=== PATIENT | male | born 1945 | race Asian ===

== ENCOUNTER 2016-12-05 08:32 | Outpatient (CLI) | payer OTHER ==
[2016-12-05 09:03] LABS: PLATELET COUNT 271 K/uL (142-355)
[2016-12-05 09:32] LABS: PARTIAL THROMBOPLASTIN TIME 24.6 SECONDS (24.5-33.6)
[2016-12-05 09:33] LABS: POTASSIUM 3.4 mmol/L (3.6-5.2); SODIUM 139 mmol/L (136-145)
== END 2016-12-05 19:28 | disposition home or self-care (01) ==
LOC: LABW 08:32
PROVIDERS: Family Medicine
DX: I12.9 Hypertensive chronic kidney disease with stage 1 through stage 4 chronic kidney disease, or unspecified chronic kidney disease (principal); Z79.899 Other long term (current) drug therapy; N18.3 Chronic kidney disease, stage 3 (moderate); Z13.1 Encounter for screening for diabetes mellitus; Z51.81 Encounter for therapeutic drug level monitoring
CPT/HCPCS: 36415; 80053; 80061; 81000; 82306; 82550; 83036; 83735; 84439; 84443; 84484; 85027; 85610; 85730; 93005

== ENCOUNTER 2017-01-07 10:16 | Outpatient (CLI) | payer OTHER ==
[2017-01-07 10:38] LABS: PLATELET COUNT 264 K/uL (142-355)
[2017-01-07 11:55] LABS: POTASSIUM 3.5 mmol/L (3.6-5.2)
== END 2017-01-07 11:20 | disposition home or self-care (01) ==
LOC: LABW 10:16
PROVIDERS: Family Medicine
DX: E87.6 Hypokalemia (principal); E83.42 Hypomagnesemia; R94.6 Abnormal results of thyroid function studies; D64.9 Anemia, unspecified
CPT/HCPCS: 36415; 82728; 83540; 83735; 84132; 84439; 84443; 84466; 84481; 85027

== ENCOUNTER 2017-02-25 08:01 | Outpatient (CLI) | payer OTHER ==
[2017-02-25 08:27] LABS: PLATELET COUNT 272 K/uL (142-355)
[2017-02-25 08:28] LABS: POTASSIUM 3.5 mmol/L (3.6-5.2); SODIUM 135 mmol/L (136-145)
== END 2017-02-25 09:05 | disposition home or self-care (01) ==
LOC: LABW 08:01
PROVIDERS: Family Medicine
DX: E87.6 Hypokalemia (principal); D64.89 Other specified anemias; E83.42 Hypomagnesemia; M25.522 Pain in left elbow; M25.562 Pain in left knee
CPT/HCPCS: 36415; 80048; 83540; 83550; 83735; 84550; 85027

== ENCOUNTER 2018-12-09 08:51 | Outpatient (CLI) | payer OTHER ==
[2018-12-09 09:12] LABS: PLATELET COUNT 260 K/uL (142-355)
[2018-12-09 09:34] LABS: POTASSIUM 3.5 mmol/L (3.6-5.2)
== END 2018-12-09 23:59 ==
LOC: LABW 08:51
PROVIDERS: Family Medicine
DX: N42.89 Other specified disorders of prostate (principal); E11.9 Type 2 diabetes mellitus without complications; I10 Essential (primary) hypertension; E78.00 Pure hypercholesterolemia, unspecified; K21.9 Gastro-esophageal reflux disease without esophagitis; E55.9 Vitamin D deficiency, unspecified; M10.9 Gout, unspecified
CPT/HCPCS: 36415; 80053; 80061; 81000; 82306; 83036; 83735; 84154; 84439; 84443; 84550; 85027

== ENCOUNTER 2020-09-25 07:51 | Outpatient (CLI) | payer OTHER ==
[~2020-09-25] VITALS: Ht 182.9 cm; Wt 107.5 kg
== END 2020-09-25 21:44 | disposition home or self-care (01) ==
LOC: DIABINF 07:51
PROVIDERS: ATTEND Internal Medicine Endocrinology, Diabetes & Metabolism
DX: E11.65 Type 2 diabetes mellitus with hyperglycemia (principal); I10 Essential (primary) hypertension; N40.0 Benign prostatic hyperplasia without lower urinary tract symptoms; E78.49 Other hyperlipidemia; N18.9 Chronic kidney disease, unspecified; K21.9 Gastro-esophageal reflux disease without esophagitis; E11.42 Type 2 diabetes mellitus with diabetic polyneuropathy
CPT/HCPCS: 82948; 96365; 96366; 96521; J1815; J1817

== ENCOUNTER 2020-09-26 07:48 | Outpatient (CLI) | payer OTHER ==
[~2020-09-26] VITALS: Ht 182.9 cm; Wt 107.5 kg
== END 2020-09-26 22:39 | disposition home or self-care (01) ==
LOC: DIABINF 07:48
PROVIDERS: ATTEND Internal Medicine Endocrinology, Diabetes & Metabolism
DX: E11.65 Type 2 diabetes mellitus with hyperglycemia (principal); I10 Essential (primary) hypertension; N40.0 Benign prostatic hyperplasia without lower urinary tract symptoms; E78.49 Other hyperlipidemia; N18.9 Chronic kidney disease, unspecified; K21.9 Gastro-esophageal reflux disease without esophagitis; E11.42 Type 2 diabetes mellitus with diabetic polyneuropathy
CPT/HCPCS: 82948; 96365; 96366; 96521; J1815; J1817

== ENCOUNTER 2020-10-02 07:57 | Outpatient (CLI) | payer OTHER ==
[~2020-10-02] VITALS: Ht 182.9 cm; Wt 107.5 kg
== END 2020-10-02 19:47 | disposition home or self-care (01) ==
LOC: DIABINF 07:57
PROVIDERS: ATTEND Internal Medicine Endocrinology, Diabetes & Metabolism
DX: E11.65 Type 2 diabetes mellitus with hyperglycemia (principal); I10 Essential (primary) hypertension; N40.0 Benign prostatic hyperplasia without lower urinary tract symptoms; E78.49 Other hyperlipidemia; N18.9 Chronic kidney disease, unspecified; K21.9 Gastro-esophageal reflux disease without esophagitis; E11.42 Type 2 diabetes mellitus with diabetic polyneuropathy
CPT/HCPCS: 82948; 96365; 96366; 96521; J1815; J1817

== ENCOUNTER 2020-10-03 07:37 | Outpatient (CLI) | payer OTHER ==
[~2020-10-03] VITALS: Ht 182.9 cm; Wt 107.5 kg
== END 2020-10-03 19:17 | disposition home or self-care (01) ==
LOC: DIABINF 07:37
PROVIDERS: ATTEND Internal Medicine Endocrinology, Diabetes & Metabolism
DX: E11.65 Type 2 diabetes mellitus with hyperglycemia (principal); E11.42 Type 2 diabetes mellitus with diabetic polyneuropathy; I10 Essential (primary) hypertension; E78.2 Mixed hyperlipidemia; N18.30 Chronic kidney disease, stage 3 unspecified; K21.9 Gastro-esophageal reflux disease without esophagitis; N40.0 Benign prostatic hyperplasia without lower urinary tract symptoms; Z87.442 Personal history of urinary calculi; R06.09 Other forms of dyspnea; N52.8 Other male erectile dysfunction; M19.90 Unspecified osteoarthritis, unspecified site
CPT/HCPCS: 82948; 96365; 96366; 96521; J1815; J1817

== ENCOUNTER 2020-10-09 08:09 | Outpatient (CLI) | payer OTHER ==
[~2020-10-09] VITALS: Ht 182.9 cm; Wt 107.5 kg
== END 2020-10-09 11:30 | disposition home or self-care (01) ==
LOC: DIABINF 08:09
PROVIDERS: ATTEND Internal Medicine Endocrinology, Diabetes & Metabolism
DX: E11.65 Type 2 diabetes mellitus with hyperglycemia (principal); I10 Essential (primary) hypertension; N40.0 Benign prostatic hyperplasia without lower urinary tract symptoms; E78.49 Other hyperlipidemia; N18.9 Chronic kidney disease, unspecified; K21.9 Gastro-esophageal reflux disease without esophagitis; E11.42 Type 2 diabetes mellitus with diabetic polyneuropathy
CPT/HCPCS: 82948; 96365; 96366; 96521; J1815; J1817

== ENCOUNTER 2020-10-10 07:54 | Outpatient (CLI) | payer OTHER ==
[~2020-10-10] VITALS: Ht 182.9 cm; Wt 107.5 kg
== END 2020-10-10 11:30 | disposition home or self-care (01) ==
LOC: DIABINF 07:54
PROVIDERS: ATTEND Internal Medicine Endocrinology, Diabetes & Metabolism
DX: E11.65 Type 2 diabetes mellitus with hyperglycemia (principal); I10 Essential (primary) hypertension; N40.0 Benign prostatic hyperplasia without lower urinary tract symptoms; E78.49 Other hyperlipidemia; N18.9 Chronic kidney disease, unspecified; K21.9 Gastro-esophageal reflux disease without esophagitis; E11.42 Type 2 diabetes mellitus with diabetic polyneuropathy
CPT/HCPCS: 82948; 96365; 96366; 96521; J1815; J1817

== ENCOUNTER 2020-10-16 08:14 | Outpatient (CLI) | payer OTHER ==
[~2020-10-16] VITALS: Ht 182.9 cm; Wt 107.5 kg
== END 2020-10-16 11:30 | disposition home or self-care (01) ==
LOC: DIABINF 08:14
PROVIDERS: ATTEND Nurse Practitioner
DX: E11.65 Type 2 diabetes mellitus with hyperglycemia (principal); E11.40 Type 2 diabetes mellitus with diabetic neuropathy, unspecified; M51.37 Other intervertebral disc degeneration, lumbosacral region; I10 Essential (primary) hypertension; E78.2 Mixed hyperlipidemia; K21.9 Gastro-esophageal reflux disease without esophagitis; N52.9 Male erectile dysfunction, unspecified; N40.0 Benign prostatic hyperplasia without lower urinary tract symptoms
CPT/HCPCS: 82948; 96365; 96366; 96521; J1815; J1817

== ENCOUNTER 2020-10-17 07:53 | Outpatient (CLI) | payer OTHER | END 2020-10-17 11:30 | disposition home or self-care (01) | LOC: DIABINF 07:53 | PROVIDERS: ATTEND Nurse Practitioner | DX: E11.65 Type 2 diabetes mellitus with hyperglycemia (principal); E11.40 Type 2 diabetes mellitus with diabetic neuropathy, unspecified; M51.37 Other intervertebral disc degeneration, lumbosacral region; I10 Essential (primary) hypertension; E78.2 Mixed hyperlipidemia; K21.9 Gastro-esophageal reflux disease without esophagitis; N52.8 Other male erectile dysfunction; N40.0 Benign prostatic hyperplasia without lower urinary tract symptoms | CPT/HCPCS: 82948; 96365; 96366; 96521; J1817 ==

== ENCOUNTER 2020-10-24 08:14 | Outpatient (CLI) | payer OTHER ==
[~2020-10-24] VITALS: Ht 182.9 cm; Wt 107.5 kg
== END 2020-10-24 19:09 | disposition home or self-care (01) ==
LOC: DIABINF 08:14
PROVIDERS: ATTEND Nurse Practitioner
DX: E11.65 Type 2 diabetes mellitus with hyperglycemia (principal); I10 Essential (primary) hypertension; N40.0 Benign prostatic hyperplasia without lower urinary tract symptoms; E78.49 Other hyperlipidemia; N18.9 Chronic kidney disease, unspecified; K21.9 Gastro-esophageal reflux disease without esophagitis; E11.42 Type 2 diabetes mellitus with diabetic polyneuropathy
CPT/HCPCS: 82948; 96365; 96366; 96521; J1815; J1817

== ENCOUNTER 2020-10-30 08:05 | Outpatient (CLI) | payer OTHER ==
[~2020-10-30] VITALS: Ht 182.9 cm; Wt 107.5 kg
== END 2020-10-30 21:18 | disposition home or self-care (01) ==
LOC: DIABINF 08:05
PROVIDERS: ATTEND Nurse Practitioner
DX: E11.65 Type 2 diabetes mellitus with hyperglycemia (principal); I10 Essential (primary) hypertension; N40.0 Benign prostatic hyperplasia without lower urinary tract symptoms; E78.49 Other hyperlipidemia; N18.9 Chronic kidney disease, unspecified; K21.9 Gastro-esophageal reflux disease without esophagitis; E11.42 Type 2 diabetes mellitus with diabetic polyneuropathy
CPT/HCPCS: 82948; 96365; 96366; 96521; J1815; J1817

== ENCOUNTER 2020-11-06 08:02 | Outpatient (CLI) | payer OTHER ==
[~2020-11-06] VITALS: Ht 182.9 cm; Wt 107.5 kg
== END 2020-11-06 19:18 | disposition home or self-care (01) ==
LOC: DIABINF 08:02
PROVIDERS: ATTEND Nurse Practitioner
DX: E11.65 Type 2 diabetes mellitus with hyperglycemia (principal); I10 Essential (primary) hypertension; N40.0 Benign prostatic hyperplasia without lower urinary tract symptoms; E78.49 Other hyperlipidemia; N18.9 Chronic kidney disease, unspecified; K21.9 Gastro-esophageal reflux disease without esophagitis; E11.42 Type 2 diabetes mellitus with diabetic polyneuropathy
CPT/HCPCS: 82948; 96365; 96366; 96521; J1815; J1817

== ENCOUNTER 2020-11-13 07:50 | Outpatient (CLI) | payer OTHER ==
[~2020-11-13] VITALS: Ht 182.9 cm; Wt 107.5 kg
== END 2020-11-13 20:51 | disposition home or self-care (01) ==
LOC: DIABINF 07:50
PROVIDERS: ATTEND Nurse Practitioner
DX: E11.65 Type 2 diabetes mellitus with hyperglycemia (principal); E11.42 Type 2 diabetes mellitus with diabetic polyneuropathy; I10 Essential (primary) hypertension; E78.2 Mixed hyperlipidemia; N18.30 Chronic kidney disease, stage 3 unspecified; K21.9 Gastro-esophageal reflux disease without esophagitis; N40.0 Benign prostatic hyperplasia without lower urinary tract symptoms; Z87.898 Personal history of other specified conditions; R06.09 Other forms of dyspnea; N52.8 Other male erectile dysfunction; M19.90 Unspecified osteoarthritis, unspecified site
CPT/HCPCS: 82948; 96365; 96366; 96521; J1815; J1817

== ENCOUNTER 2020-11-20 07:50 | Outpatient (CLI) | payer OTHER ==
[~2020-11-20] VITALS: Ht 182.9 cm; Wt 107.5 kg
== END 2020-11-20 22:35 | disposition home or self-care (01) ==
LOC: DIABINF 07:50
PROVIDERS: ATTEND Nurse Practitioner
DX: E11.65 Type 2 diabetes mellitus with hyperglycemia (principal); E11.42 Type 2 diabetes mellitus with diabetic polyneuropathy; I10 Essential (primary) hypertension; E78.2 Mixed hyperlipidemia; N18.30 Chronic kidney disease, stage 3 unspecified; K21.9 Gastro-esophageal reflux disease without esophagitis; N40.0 Benign prostatic hyperplasia without lower urinary tract symptoms; Z87.898 Personal history of other specified conditions; R06.09 Other forms of dyspnea; N52.8 Other male erectile dysfunction; M19.90 Unspecified osteoarthritis, unspecified site
CPT/HCPCS: 82948; 96365; 96366; 96521; J1815; J1817

== ENCOUNTER 2020-11-27 07:55 | Outpatient (CLI) | payer OTHER ==
[~2020-11-27] VITALS: Ht 182.9 cm; Wt 107.5 kg
== END 2020-11-27 21:41 | disposition home or self-care (01) ==
LOC: DIABINF 07:55
PROVIDERS: ATTEND Nurse Practitioner
DX: E11.65 Type 2 diabetes mellitus with hyperglycemia (principal); E11.42 Type 2 diabetes mellitus with diabetic polyneuropathy; I10 Essential (primary) hypertension; E78.2 Mixed hyperlipidemia; N18.30 Chronic kidney disease, stage 3 unspecified; K21.9 Gastro-esophageal reflux disease without esophagitis; N40.0 Benign prostatic hyperplasia without lower urinary tract symptoms; Z87.898 Personal history of other specified conditions; R06.09 Other forms of dyspnea; N52.8 Other male erectile dysfunction; M19.90 Unspecified osteoarthritis, unspecified site
CPT/HCPCS: 82948; 96365; 96366; 96521; J1815; J1817

== ENCOUNTER 2020-12-04 08:04 | Outpatient (CLI) | payer OTHER ==
[~2020-12-04] VITALS: Ht 182.9 cm; Wt 107.5 kg
== END 2020-12-04 19:06 | disposition home or self-care (01) ==
LOC: DIABINF 08:04
PROVIDERS: ATTEND Nurse Practitioner
DX: E11.65 Type 2 diabetes mellitus with hyperglycemia (principal); E11.42 Type 2 diabetes mellitus with diabetic polyneuropathy; I10 Essential (primary) hypertension; E78.2 Mixed hyperlipidemia; N18.30 Chronic kidney disease, stage 3 unspecified; K21.9 Gastro-esophageal reflux disease without esophagitis; N40.0 Benign prostatic hyperplasia without lower urinary tract symptoms; Z87.898 Personal history of other specified conditions; R06.09 Other forms of dyspnea; N52.8 Other male erectile dysfunction; M19.90 Unspecified osteoarthritis, unspecified site
CPT/HCPCS: 82948; 96365; 96366; 96521; J1815; J1817

== ENCOUNTER 2020-12-11 07:48 | Outpatient (CLI) | payer OTHER | END 2020-12-11 21:42 | disposition home or self-care (01) | LOC: DIABINF 07:48 | PROVIDERS: ATTEND Nurse Practitioner | DX: E11.65 Type 2 diabetes mellitus with hyperglycemia (principal); Z87.898 Personal history of other specified conditions; E11.40 Type 2 diabetes mellitus with diabetic neuropathy, unspecified; I10 Essential (primary) hypertension; E78.2 Mixed hyperlipidemia; K21.9 Gastro-esophageal reflux disease without esophagitis; N52.8 Other male erectile dysfunction; N40.0 Benign prostatic hyperplasia without lower urinary tract symptoms | CPT/HCPCS: 82948; 96365; 96366; 96521; J1817 ==

== ENCOUNTER 2021-08-29 12:58 | Outpatient (CLI) | payer OTHER | END 2021-08-29 18:54 | disposition home or self-care (01) | LOC: RAD 12:58 | PROVIDERS: ATTEND Family Medicine | DX: M54.2 Cervicalgia (principal); R22.1 Localized swelling, mass and lump, neck ==

== ENCOUNTER 2021-09-10 10:12 | Outpatient (CLI) | payer OTHER | END 2021-09-10 18:58 | disposition home or self-care (01) | LOC: US 10:12 | PROVIDERS: ATTEND Family Medicine | DX: R22.1 Localized swelling, mass and lump, neck (principal); M54.2 Cervicalgia; E11.65 Type 2 diabetes mellitus with hyperglycemia ==